=== PATIENT | female | born 1960 | race Asian ===

== ENCOUNTER 2019-12-06 14:51 | Emergency (ER) | payer SELFPAY ==
[~2019-12-06] VITALS: Ht 157.5 cm; Wt 54.5 kg
[2019-12-06 15:42] VITALS: BP 108/63
== END 2019-12-06 18:12 | disposition left against medical advice (07) ==
LOC: EMS 14:52
DX: R11.2 Nausea with vomiting, unspecified (principal); Z53.21 Procedure and treatment not carried out due to patient leaving prior to being seen by health care provider